=== PATIENT | female | born 1990 | race American Indian/Alaskan Native ===

== ENCOUNTER 2021-08-05 03:07 | Emergency (ER) | payer MEDICAID ==
[2021-08-05 03:24] VITALS: BP 117/64
[2021-08-05] MEDS ORDERED: traMADol 50 MG TAB PO ONE (04:28)
[2021-08-05] MEDS ORDERED: diazePAM 5 MG TAB PO ONE (04:28)
[2021-08-05] MEDS ORDERED: IBUPROFEN 800 MG TAB PO ONE (04:28)
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
== END 2021-08-05 04:59 | disposition home or self-care (01) ==
LOC: ED 03:07
DX: S29.012A Strain of muscle and tendon of back wall of thorax, initial encounter (principal); M62.830 Muscle spasm of back; Z88.6 Allergy status to analgesic agent; Z79.899 Other long term (current) drug therapy; V89.2XXA Person injured in unspecified motor-vehicle accident, traffic, initial encounter; Y93.89 Activity, other specified; Y92.488 Other paved roadways as the place of occurrence of the external cause; Y99.8 Other external cause status
CPT/HCPCS: 99282